=== PATIENT | male | born 1970 | race Two or more races ===

== ENCOUNTER 2019-09-04 02:33 | Emergency (ER) | payer SELFPAY ==
[~2019-09-04] VITALS: Ht 172.7 cm; Wt 72.6 kg
[2019-09-04 03:09] VITALS: BP 121/72
== END 2019-09-04 03:39 | disposition home or self-care (01) ==
LOC: ER 02:37
DX: T68.XXXA Hypothermia, initial encounter (principal); Z59.0 Homelessness; X31.XXXA Exposure to excessive natural cold, initial encounter

== ENCOUNTER 2019-09-10 02:40 | Emergency (ER) | payer MEDICAID ==
[~2019-09-10] VITALS: Ht 172.7 cm; Wt 83.9 kg
--- NOTE | 2019-09-10 02:50 | NUR ---
PT BIBSELF C/O UPPER LIP SWELLING X 1 DAY. PT AOX3 RR EVEN AND UNLABORED. NO SOB NOTED. NO NVD AT THIS TIME. PT GOWNED AND PLACED ON MONITOR.
--- NOTE | 2019-09-10 03:06 | NUR ---
DR. FERRER AT BEDSIDE FOR EVAL.
[2019-09-10] MEDS ORDERED: FAMOTIDINE/PF INJ 20 MG/2 ML VIAL IV ONE ×2 (03:07→03:30)
[2019-09-10] MEDS ORDERED: diphenhydrAMINE HCL 50 MG/ML VIAL ONE (03:07)
[2019-09-10] MEDS ORDERED: methylPREDNISolone SOD SUCC 125 MG/2ML VIAL ONE (03:07)
[2019-09-10] MEDS ORDERED: diphenhydrAMINE HCL 50 MG/ML VIAL IV ONE (03:30)
[2019-09-10] MEDS ORDERED: methylPREDNISolone SOD SUCC 125 MG/2ML VIAL IV ONE (03:30)
[2019-09-10 05:09] VITALS: BP 115/71
--- NOTE | 2019-09-10 05:10 | NUR ---
Patient is resting comfortably in bed with eyes closed. Easily aroused. VSS.
--- NOTE | 2019-09-10 05:23 | NUR ---
IV removed. Catheter intact and site benign. Pressure and 4x4 applied to site. No bleeding noted.Patient discharged to home in stable condition. Written and verbal after care instructions given. Patient verbalizes understanding of instruction.
== END 2019-09-10 06:52 | disposition home or self-care (01) ==
LOC: ER 02:43
DX: K13.0 Diseases of lips (principal); T78.1XXA Other adverse food reactions, not elsewhere classified, initial encounter; Z59.0 Homelessness; X58.XXXA Exposure to other specified factors, initial encounter
CPT/HCPCS: 96374; 96375; 99283; J1200; J2930; J3490

== ENCOUNTER 2019-09-10 10:28 | Emergency (ER) | payer MEDICAID ==
[~2019-09-10] VITALS: Ht 175.3 cm; Wt 81.2 kg
--- NOTE | 2019-09-10 10:53 | NUR ---
PT RETURNED TO EMERGENCY ROOM FOR MEDICATION REFILL
[2019-09-10] MEDS ORDERED: predniSONE 20 MG TABLET PO ONE (13:00)
[2019-09-10] MEDS ORDERED: diphenhydrAMINE HCL 25 MG CAPSULE PO ONE (13:00)
--- NOTE | 2019-09-10 13:02 | NUR ---
PT DISCHARGED TO [facility] CLOTHED APPROPRIATELY AND GIVEN RESOURCES PT WALKED WITH STEADY GAIT
[2019-09-10 13:03] VITALS: BP 126/78
== END 2019-09-10 13:34 | disposition home or self-care (01) ==
LOC: ER 11:09
DX: T78.40XA Allergy, unspecified, initial encounter (principal); X58.XXXA Exposure to other specified factors, initial encounter